=== PATIENT | female | born 1980 | race Caucasian/White ===

== ENCOUNTER 2022-03-12 15:10 | Outpatient (CLI) | payer MEDICAID, SELFPAY ==
[2022-03-12 18:08] LABS: Hepatitis B Surface Antigen* Negative (Negative)
[2022-03-12 18:19] LABS: HIV 1/2/P24 Combo Screen* Negative (Negative)
[2022-03-12 18:25] LABS: Hepatitis C Virus Antibody* Negative (Negative)
[2022-03-15 00:04] LABS: Rapid Plasma Reagin (RPR) Non Reactive (Non Reactive)
[2022-03-15 05:08] LABS: Rubella Antibody IgG 12.2 IU/mL; Varicella-Zoster Virus Ab, IgG 636.3 IV
== END 2022-03-12 15:11 | disposition home or self-care (01) ==
PROVIDERS: Visit Provider Advanced Practice Midwife
DX: Z34.81 Encounter for supervision of other normal pregnancy, first trimester (principal); Z3A.11 11 weeks gestation of pregnancy
CPT/HCPCS: 76801; 86592; 86703; 86762; 86787; 86803; 86850; 86900; 86901; 87086; 87340

== ENCOUNTER 2022-05-13 14:27 | Outpatient (CLI) | payer MEDICAID, SELFPAY | END 2022-05-13 14:28 | disposition home or self-care (01) | PROVIDERS: Visit Provider Pediatrics Neonatal-Perinatal Medicine | DX: O09.522 Supervision of elderly multigravida, second trimester (principal); Z87.51 Personal history of pre-term labor; Z3A.19 19 weeks gestation of pregnancy | CPT/HCPCS: 76811 ==

== ENCOUNTER 2022-06-08 01:24 | Outpatient (CLI) | payer MEDICAID, SELFPAY | END 2022-06-08 01:25 | disposition home or self-care (01) | LOC: AMB 06-09 09:14 | PROVIDERS: Visit Provider Family Medicine | DX: O26.92 Pregnancy related conditions, unspecified, second trimester (principal); R10.9 Unspecified abdominal pain; R11.2 Nausea with vomiting, unspecified; Z3A.24 24 weeks gestation of pregnancy | CPT/HCPCS: A0425; A0433 ==

== ENCOUNTER 2022-06-08 02:07 | Emergency (ER) | payer MEDICAID, SELFPAY ==
[2022-06-08] VITALS (15 sets, daily range): BP systolic 102–124; BP diastolic 66–88; PULSE 89–108; RESP 18–20; TEMP 36.9; O2SAT 96–100; BMI 34.7
--- OUTSIDE RECORDS SUMMARY | 2022-06-08 02:16 | XMS_ITS ---
:1980 Author Organization [facility] Address [address] [place] [address] Care Team Providers Name Role Phone SHAWNA BLAKELY Unavailable Unavailable PROBLEMS Unknown Problems ALLERGIES No Information ENCOUNTERS Encounter Location Date Diagnosis [facility] - [address] [facility] Mar, Pregnanc y affected by Pediatric Surgical [address], [place] [address] of fetus, single or unspecified fetu s O35.8XX0 [facility] - [address] DUC Mar, Pediatric Surgical [address] [place], [place] Associates [address] IMMUNIZATIONS No Known Immunizations SOCIAL HISTORY Never Assessed REASON FOR REFERRAL FUNCTIONAL STATUS PLAN OF CARE Activity Details Follow Up after delivery Reason: VITAL SIGNS MEDICATIONS Unknown Medications PROCEDURES No Known procedures RESULTS No Results REASON FOR VISIT N/P CONSULT, Appt 04/03- relay msg to DR Insurance Providers [facility] Member Patient Patient Patient Patient Patient Subscriber Subscriber Subscriber Group Insurance Plan Plan Plan Plan ID Relationship Address Phone Name Date of ID Name Date of No Type Insurance Insurance Insurance Coverage to Subscriber Address Phone Name Dates [employer] [address] [phone] [employer] self Peggi 1 [id number] [facility] [address] [place] [address]
--- NOTE | 2022-06-08 02:35 | ED_ITS ---
HPI - General Adult General Chief complaint: Nausea/Vomiting Stated complaint: with food poisioning Time Seen by Provider: 06/08/22 02:11 Source: patient and EMS Mode of arrival: EMS Limitations: no limitations History of Present Illness HPI narrative: 41-year-old female with no chronic medical problems, 24 weeks presents to the emergency department with a 4 hour history of nausea vomiting and d iarrhea. States that her symptoms started around 10:00 p.m.. Accompanied by abdominal cramping. She called an ambulance out of fear for dehydration. No fevers. No blood in her diarrhea, no blood in her vomit. There is no vaginal bleeding. movement has been normal. No loss of consciousness, dizziness, dyspnea. She has not tried taking any medication to help with her symptoms. She suspects that this may be related to contaminated potato salad but is unsure. No other family members are ill. No recent travel. No history of C diff. No recent antibiotic use. No rashes or other systemic symptoms noted. Past medical history benign besides . Denies abdominal surgeries. No long-term medications. Allergies are to penicillin causing a rash. Socially nonsmoker with no pertinent travel. ROS is negative times 12 systems. Obstetrical review of systems is negative for bleeding, vaginal discharge, fluid. Good movement is noted. Related Data Home Medications Medication Instructions Recorded Confirmed prenat.vits,jose juan,hss-eeqd-oanrj 1 tab PO QDAY 03/12/22 05/22/22 Previous Rx's Medication Instructions Recorded ondansetron 4 mg disintegrating 4 mg PO Q6H PRN nausea and 06/08/22 tablet vomiting #10 tabs Allergies Allergy/AdvReac Type Severity Reaction Status Date / Time Penicillins Allergy Mild Rash Verified 06/08/22 02:17 [facility] PFS Medical History Anomaly of kidney of fetus in [place] History of hyperemesis gravidarum Migraines Normal spontaneous vaginal delivery Surgical History History of radiofrequency ablation (RFA) of nerve of cervical spine Family History Maternal Grandfather Stroke Myocardial infarction Maternal Grandmother Stroke Diabetes Father High blood pressure Emphysema lung Social History Smoking Status: Never smoker Do you use any of these nicotine containing products: None Second hand tobacco smoke exposure: No How often do you have a drink containing alcohol: never AUDIT-C Alcohol total score: 0 Non-prescribed substance use: denies use Little interest or pleasure in doing things: not at all Feeling down, depressed, or hopeless: not at all Exam Const: Vital Signs, click to edit/add: Vital Signs - 24 hr 06/08/22 02:11 06/08/22 02:37 06/08/22 02:30 Temperature 98.4 F Pulse Rate 95 Pulse Rate [Right Pulse Oximeter] 95 Respiratory Rate 20 Blood Pressure 112/71 Blood Pressure [Ri ght Upper Arm] 114/76 Pulse Oximetry 98 98 99 Oxygen Delivery Me thod Room Air 06/08/22 02:32 06/08/22 02:33 06/08/22 03:00 Temperature Pulse Rate 97 95 89 Pulse Rate [Right Pulse Oximeter] Respiratory Rate Blood Pressure 111/80 Blood Pressure [Ri ght Upper Arm] Pulse Oximetry 99 99 99 Oxygen Delivery Me thod 06/08/22 03:02 06/08/22 03:07 Temperature Pulse Rate 106 H 102 H Pulse Rate [Right Pulse Oximeter] Respiratory Rate Blood Pressure 124/66 112/77 Blood Pressure [Ri ght Upper Arm] Pulse Oximetry 100 98 Oxygen Delivery Me thod Documenting provider has reviewed patient's vital signs: yes Other: Anxious but no clinical signs of dehydration. Well nourished and well hydrated appearing. HENMT: Common normals: normocephalic and head/scalp atraumatic Head and scalp: normocephalic and atraumatic Mouth: oral and palatal mucosa normal Throat: posterior oropharynx normal Eye: General eye: normal appearance of both eyes Other: Normal gaze and tracking. Neck & C-Spine: Common normals: full ROM and no lymphadenopathy Resp: Common normals: normal respiratory effort, no use of accessory muscles and clear to auscultation bilaterally Effort & inspection: able to speak in complete sentences Auscultation: clear to auscultation bilaterally Cardio: Common normals: regular rate, regular rhythm, S1 normal heart sound, S2 normal heart sound, no murmurs and peripheral pulses 2+ throughout Rate: regular rate Rhythm: regular rhythm Heart sounds: S1 normal and S2 normal Peripheral pulses: pulses 2+ throughout GI: Other: Abdomen gravid, fundal height consistent with reported dates. Auscultated heart tones in the mid 140s. Abdomen is otherwise benign, soft and nondistended. Bowel sounds are active in all 4 quadrants. Minimally diffusely tender but no localizing tenderness. Back & Pelvis: Lumbar spine/lower back: normal to inspection Extremity: Common normals: normal capillary refill and no pedal edema Neuro: Speech: speech normal Motor exam: strength 5/5 throughout, no tremor noted and no movement abnormalities noted Psych: Common normals: thought process normal and cooperative Mood and affect: anxious Thought process: normal thought process Insight: fair Judgement: fair Skin: Common normals: no rashes or lesions noted General skin exam: no rashes or lesions noted Course Vital Signs Vital signs: Initial Vital Signs Temperature 98.4 F 06/08/22 02:11 Temperature Source Temporal Artery Scan 06/08/22 02:11 Pulse Rate 95 06/08/22 02:11 Respiratory Rate 20 06/08/22 02:11 Blood Pressure 114/76 06/08/22 02:11 Blood Pressure Mean 88 06/08/22 02:11 Blood Pressure Position Sitting 06/08/22 02:11 Pulse Oximetry 98 06/08/22 02:11 Oxygen Delivery Method 06/08/22 02:11 Vital Signs Temperature 98.4 F 06/08/22 02:11 Pulse Rate 95 06/08/22 02:11 Respiratory Rate 20 06/08/22 02:11 Blood Pressure 114/76 06/08/22 02:11 Pulse Oximetry 98 06/08/22 02:11 Oxygen Delivery Method 06/08/22 02:11 Temperature 98.4 F 06/08/22 02:11 Pulse Rate 102 H 06/08/22 03:07 Respiratory Rate 20 06/08/22 02:11 Blood Pressure 112/77 06/08/22 03:07 Pulse Oximetry 98 06/08/22 03:07 Oxygen Delivery Method 06/08/22 02:11 Medical Decision Making MDM Narrative Medical decision making narrative: 4 hours of nausea vomiting and diarrhea, no clinical signs of dehydration, hypotension, tachycardia or other abnormality. Discussed risks and benefits of medications in . She verbalizes understanding and agreement. IV had infiltrated, unlikely that she received Zofran given by EMS. 4 mg of IV Zofran will be given x1, Protonix 40 mg IV x1, 1 L of LR, 4 mg of oral Imodium. Re- evaluated 1 hour. No clinical indication for labs and normally progressing . No fever signs of sepsis. Update: Patient feeling better after omeprazole and Zofran. Counseled on use of Tylenol, [id number]-tyv-kyzuggm Imodium, will send prescription for Zofran. Counseled on typical course of gastroenteritis. Alarm symptoms such as fever, bloody diarrhea reviewed as indications to update Ob provider or seek medical care. Brat diet, fluids discussed. Typical OB precautions reviewed. Update Ob provider if not improving in 36 hours. Discharge Plan Discharge Clinical Impression: Gastroenteritis Patient Disposition: Home w/ Parent or Adult Condition: Improved Instructions: Gastroenteritis (DC) Additional Instructions: There are no signs of fever, low blood pressure or elevated heart rate that would make us think there was a dangerous infection. Your given IV fluids, Zofran for nausea, stomach acid medicine. You may continue taking loperamide also known as Imodium. I recommend that now that you have already been given the initial dose, you take 2 mg after every bout of diarrhea, up to 6 tablets per day. It is okay to take Tylenol as needed for stomach discomfort. Consider taking omeprazole or famotidine both of which are bmnl-llg-kliuwjt stomach acid medicines. If you have bloody diarrhea, update your Ob provider as we would need to do additional testing as would we if you run a fever over 100.4. Follow the brat diet which consists of bananas, rice, applesauce, toast as your 1st initial foods. Sip slowly on fluids throughout the day. Update your Ob provider if you are not starting to improve in 36 hours. Activity Level: Activity as Tolerated Discharge Diet: Regular Prescriptions: New ondansetron 4 mg tablet,disintegrating 4 mg PO Q6H PRN (Reason: nausea and vomiting) Qty: 10 0RF No Action prenat.vits,jose juan,goe-bkcy-ufoco Tablet 1 tab PO QDAY Follow Up/Referrals: Provider,Not a Local [Primary Care Provider] - Stand Alone Forms: INTTRA Info Instructions
[2022-06-08] MEDS: LACTATED RINGERS 1000 ML 1,000 ML IV (02:42)
[2022-06-08] MEDS: PANTOPRAZOLE SODIUM 40 MG INJ IVP (02:43)
[2022-06-08] MEDS: ONDANSETRON 2 MG/ML inj 4 MG IVP (02:43)
[2022-06-08] MEDS: LOPERAMIDE HCL 2 MG CAPSULE 4 MG PO (02:43)
--- NOTE | 2022-06-08 03:07 | PC.NURSE ---
1X small amount brown liquid emesis, approx 20cc
--- OUTSIDE RECORDS SUMMARY | 2022-06-08 03:09 | XMS_ITS ---
:1980 Author Organization [facility] Address [address] [place] [address] Care Team Providers Name Role Phone SHAWNA BLAKELY Unavailable Unavailable PROBLEMS Unknown Problems ALLERGIES No Information ENCOUNTERS Encounter Location Date Diagnosis [facility] [address] [facility] Mar, Pregnanc y affected by Pediatric Surgical [address], [place] [address] of fetus, single or unspecified fetu s O35.8XX0 [facility] Office - [address] Mar, Pediatric Surgical [address] [place], [place] Associates [address] IMMUNIZATIONS No Known Immunizations SOCIAL HISTORY Never Assessed REASON FOR REFERRAL FUNCTIONAL STATUS PLAN OF CARE Activity Details Follow Up after delivery Reason: VITAL SIGNS MEDICATIONS Unknown Medications PROCEDURES No Known procedures RESULTS No Results REASON FOR VISIT N/P CONSULT, Appt 04/03- relay msg to DR Insurance Providers [facility] Member Patient Patient Patient Patient Patient Subscriber Subscriber Subscriber Group Insurance Plan Plan Plan Plan ID Relationship Address Phone Name Date of ID Name Date of No Type Insurance Insurance Insurance Coverage to Subscriber Address Phone Name Dates [employer] [address] [phone] [employer] PM[employer] self Peggi 1 [id number] [facility] [address] [place] [address]
[2022-06-08] MEDS: LOPERAMIDE HCL 2 MG CAPSULE PO (03:32)
== END 2022-06-08 04:23 | disposition home or self-care (01) ==
PROVIDERS: Emergency Provider Family Medicine
DX: K52.9 Noninfective gastroenteritis and colitis, unspecified (principal); Z3A.24 24 weeks gestation of pregnancy
CPT/HCPCS: 94761; 96374; 96375; 99283; A9270; C9113; J2405; J7120

== ENCOUNTER 2022-07-16 12:28 | Outpatient (CLI) | payer MEDICAID, SELFPAY ==
--- OUTSIDE RECORDS SUMMARY | 2022-07-19 07:59 | XMS_ITS ---
Author Name SHAWNA BLAKELY Address [address] [place] [address] Organization [facility] Address [address] [place] [address] Care Team Providers Care Food Trades Assistants Name Role Phone SHAWNA BLAKELY Unavailable [phone] PROBLEMS Unknown Problems ALLERGIES No Information ENCOUNTERS Encounter Location Date Diagnosis [facility] [address] [facility] [address] [place] [address] Mar, affected by genitourinary abnormality of fetus, single or unspecified fetus O35.8XX0 [facility] - [facility] Surgical [facility] [address] [place] [address] Mar, IMMUNIZATIONS No Known Immunizations SOCIAL HISTORY Never Assessed REASON FOR REFERRAL FUNCTIONAL STATUS PLAN OF CARE Activity Details VITAL SIGNS MEDICATIONS Unknown Medications PROCEDURES No Known procedures RESULTS No Results REASON FOR VISIT N/P CONSULT, Appt 04/03- relay msg to DRNirmala Insurance Providers Health Insurance Type Health Plan Insurance Address Health Plan Insurance Phone Health Plan Insurance Name Health Plan Coverage Dates Member ID Patient Relationship to Subscriber Patient Address Patient Phone Patient Name Patient Date of Subscriber ID Subscriber Name Subscriber Date of Group No [employer] [place] [address] [place] [address] [employer] self Brandee Feliz [id number] [employer]
== END 2022-07-16 12:29 | disposition home or self-care (01) ==
LOC: NFLDREF 07-19 07:57
PROVIDERS: Visit Provider Advanced Practice Midwife
DX: O09.523 Supervision of elderly multigravida, third trimester (principal); O35.EXX0 Maternal care for other (suspected) fetal abnormality and damage, fetal genitourinary anomalies, not applicable or unspecified; Z3A.29 29 weeks gestation of pregnancy
CPT/HCPCS: 86592

== ENCOUNTER 2022-08-06 12:54 | Outpatient (CLI) | payer MEDICAID, SELFPAY ==
--- OUTSIDE RECORDS SUMMARY | 2022-08-06 12:56 | XMS_ITS ---
Author Name SHAWNA BLAKELY Address [address] [place] [address] Organization [facility] Address [address] [place] [address] Care Team Providers Care Occupational Nurse Name Role Phone SHAWNA BLAKELY Unavailable [phone] PROBLEMS Unknown Problems ALLERGIES No Information ENCOUNTERS Encounter Location Date Diagnosis [facility] [address] [facility] [address] [place] [address] Mar, affected by genitourinary abnormality of fetus, single or unspecified fetus O35.8XX0 [facility] [address] [place] [address] Mar, IMMUNIZATIONS No Known Immunizations SOCIAL HISTORY [...] [place] [address] [place] [address] [employer] self Brandee Feliz [id number] MEMTMA
--- NOTE | 2022-08-06 13:00 | CRLHL7_ITS ---
For Patients: As a result of the Century Cures Act, medical imaging exams and procedure reports are released immediately into your electronic medical record. You may view this report before your referring provider. If you have questions, please contact your health care provider. INDICATION: BPP/growth, f/u left renal pelvis dilation TECHNIQUE: Real time morley scale imaging of the fetus was performed. COMPARISON: 05/13/2022 FINDINGS: Sonographic imaging demonstrates a single living intrauterine gestation. Fetus demonstrates a regular cardiac rate of 133 beats per minute. Fetus has a vertex position. The placenta lies fundal posterior. Amniotic fluid volume appears normal and there is a single deepest pocket of 5.7 cm. The estimated weight is gm which lies at the %. On the prior OB ultrasound dated 05/13/2022 the estimated weight was at the 48th percentile. BPD 19th percentile. HC 62nd percentile. AC 91st percentile. FL 6th percentile. The fetus was active. Respiratory motion visualized, however, did not last for 30 seconds. There was normal flexion and extension of the trunk and extremities. IMPRESSION: Biophysical profile 10/01. Left renal pelvis measures 1.3 cm. Previously, this measured 5.7 millimeters. Sonographic gestational age 32 weeks 2 days and sonographic due date 09/29/2022. Good correlation with dates. Normal interval growth. Estimated weight 57th percentile. Abdominal circumference 91st percentile. Dictated by Daron Rojas MD @ 08/07/2022 11:51:48 AM (Electronically Signed)
== END 2022-08-06 12:55 | disposition home or self-care (01) ==
LOC: US 12:54
PROVIDERS: Visit Provider Advanced Practice Midwife
DX: O35.EXX0 Maternal care for other (suspected) fetal abnormality and damage, fetal genitourinary anomalies, not applicable or unspecified (principal); Z3A.32 32 weeks gestation of pregnancy
CPT/HCPCS: 76816; 76819

== ENCOUNTER 2022-08-27 14:17 | Outpatient (CLI) | payer MEDICAID, SELFPAY ==
--- OUTSIDE RECORDS SUMMARY | 2022-08-27 14:18 | XMS_ITS ---
Author Name SHAWNA BLAKELY Address [address] [place] [address] Organization [facility] Address [address] [place] [address] Care Team Providers Care Baker Apprentice Name Role Phone SHAWNA BLAKELY Unavailable [phone] PROBLEMS Unknown Problems ALLERGIES No Information ENCOUNTERS Encounter Location Date Diagnosis [facility] [address] [place] [address] Mar, affected by genitourinary abnormality of fetus, single or unspecified fetus O35.8XX0 [facility] [address] [place] [address] Mar, IMMUNIZATIONS No Known Immunizations SOCIAL HISTORY Never Assessed REASON FOR REFERRAL FUNCTIONAL STATUS PLAN OF CARE Activity Details Follow Up after delivery Reaso n: VITAL SIGNS MEDICATIONS Unknown Medications PROCEDURES No [...] [place] [address] [place] [address] [employer] PM[employer] self Brandee Feliz [id number] [facility]
[2022-08-27 14:29] VITALS: BP 95/57; PULSE 103; RESP 16; TEMP 36.9
--- NOTE | 2022-08-27 15:10 | PC.OBNST ---
NST Note NST Note Start: 08/27/22 14:14 Freq: ONCE Status: Active Protocol: Document 08/27/22 15:08 LASHAWN (Rec: 08/27/22 15:10 AAP [id number]) NST Note 7 Para (# of births) 3 EDC 10/01/22 Gestational Age In Weeks & Days 35 Weeks & 0 Days High Risk Factors Advanced Maternal Age Patient Presented with Complaint(s) of Other Other Complaints Here for NST Reactive Yes Appropriate for Gestational Age Yes RN Charity Carias RN Date 08/27/22 Reactive Yes Appropriate for Gestational Age Yes RAINA Fagan CNM Date 08/27/22 OB NST charge Yes Complete NST Note via Write Note Yes The provider's electronic signature indicates the NST is reactive/appropriate for gestational age. *Note to provider: If an addendum is required, open the patient's chart and click on the note under the Nurse/Allied Health tab.
== END 2022-08-27 15:23 | disposition home or self-care (01) ==
LOC: OB OUT 14:17 → OB 14:17
PROVIDERS: Visit Provider Advanced Practice Midwife
DX: O09.523 Supervision of elderly multigravida, third trimester (principal); Z3A.35 35 weeks gestation of pregnancy
CPT/HCPCS: 59025; 99213

== ENCOUNTER 2022-12-02 12:09 | Outpatient (CLI) | payer MEDICAID, SELFPAY ==
--- OUTSIDE RECORDS SUMMARY | 2022-12-03 12:24 | XMS_ITS ---
Author Name SHAWNA BLAKELY Address [address] [place] [address] Organization [facility] Address [address] [place] [address] Care Team Providers Care Clerk Secretary Name Role Phone SHAWNA BLAKELY Unavailable [phone] PROBLEMS Unknown Problems ALLERGIES No Information ENCOUNTERS Encounter Location Date Diagnosis [facility] [address] [facility] [address] [place] [address] Mar, affected by genitourinary abnormality of fetus, single or unspecified fetus O35.8XX0 [facility] [address] [place] [address] Mar, IMMUNIZATIONS No Known Immunizations SOCIAL HISTORY [...] [place] [address] [place] [address] [employer] PM[employer] self Brandee Feliz [id number] [facility]
== END 2022-12-02 12:10 | disposition home or self-care (01) ==
LOC: NFLDREF 12-03 12:23
PROVIDERS: Visit Provider Family Medicine
DX: E66.9 Obesity, unspecified (principal); F90.0 Attention-deficit hyperactivity disorder, predominantly inattentive type; Z86.32 Personal history of gestational diabetes; Z79.899 Other long term (current) drug therapy; Z76.89 Persons encountering health services in other specified circumstances; Z39.1 Encounter for care and examination of lactating mother
CPT/HCPCS: 80053; 80061; 82306; 84443

== ENCOUNTER 2023-07-08 08:32 | Outpatient (CLI) | payer MEDICAID, SELFPAY ==
--- NOTE | 2023-07-08 08:45 | MM_ITS ---
Patient: TYLER BARAJAS Facility:?[facility] Patient ID:?[id number] Site Patient ID:?[id number] Site :?1980 Study:?XRay-Breast Bilateral 3D W/CAD-07/08/2023 9:33:42 AM Ordering Physician:Silver Final Report: DIGITAL DIAGNOSTIC BILATERAL MAMMOGRAM USING TOMOSYNTHESIS AND COMPUTER-AIDED DETECTION LEFT BREAST ULTRASOUND CLINICAL HISTORY: LEFT breast density at 12 o`clock on outside screening ultrasound exam. COMPARISON: None available. TECHNIQUE: Digital BILATERAL mammogram in four projections. Tomosynthesis and CAD utilized. Real-time ultrasound imaging of LEFT breast with imaging documentation. BREAST COMPOSITION: There are areas of scattered fibroglandular density. FINDINGS: 3D CC/MLO BILATERAL mammogram images submitted. Normal fibroglandular tissue is present bilaterally without suspicious mass or architectural distortion. No suspicious calcifications. No adenopathy. Targeted LEFT breast ultrasound performed at 12 o`clock 7 cm from the nipple. Normal fibroglandular tissues are present. No fibrocystic change or mass. IMPRESSION: No evidence of malignancy. No suspicious findings. RECOMMENDATIONS: Annual BILATERAL screening mammography. Results and recommendations discussed with the patient. BI-RADS Category 2: Benign A lay language report of this examination will be provided to the patient. Dictated by Daron Rojas MD @ 07/08/2023 9:39:35 AM jj/Dictated by: Daron Rojas MD @ 07/08/2023 9:39:00 AM Signed by:?Daron Rojas MD @07/08/2023 10:23:07 AM (Electronic Signature)
--- NOTE | 2023-07-08 09:15 | US_ITS ---
Patient: TYLER BARAJAS Facility:?[facility] Patient ID:?[id number] Site Patient ID:?[id number] Site :?1980 Study:?US-Breast Left DR VIDAL TO READ-07/08/2023 9:24:07 AM Ordering Physician:?BECKY GREEN Final Report: See digital BILATERAL diagnostic mammogram performed the same day for report. DW/Dictated by: Daron Vidal MD @ 07/08/2023 9:39:00 AM Signed by:?Daron Vidal MD @07/08/2023 10:23:05 AM (Electronic Signature)
== END 2023-07-08 08:33 | disposition home or self-care (01) ==
LOC: MAMMO 08:32
PROVIDERS: PCP Family Medicine; Visit Provider Family Medicine
DX: N63.20 Unspecified lump in the left breast, unspecified quadrant (principal); R92.8 Other abnormal and inconclusive findings on diagnostic imaging of breast
CPT/HCPCS: 76642; 77066; G0279

== ENCOUNTER 2024-03-17 13:37 | Outpatient (CLI) | payer MEDICAID, SELFPAY ==
--- OUTSIDE RECORDS SUMMARY | 2024-03-20 14:13 | XMS_ITS | Clinical Summary ---
Author Organization [facility] Address [place], [place] [address] Care Team Providers Care Machine Chocolate Molder Name Role Phone Nonstaff, Doctor Primary Care Provider Unavailab le Allergies Active Allergy Reactions Criticality Noted Date Comments Penicillins Rash 10/30/2015 Medications Medication Sig Dispensed Refills Start Date End Date Status VIT #91/FE FUM/FA/DHA ( + DHA ORAL) Take 1 Tab by mouth once daily. Active aspirin chewable 81 mg chewable tablet Daily Active Active Problems Problem Noted Date Diagnosed Date [facility] Supervision of high-risk 1 Overview (03/27/2021): [facility] TESTING ONLY NEXT VISIT ALERTS: PLANS & FUTURE APPOINTMENTS: TESTING PLAN: Weekly - has testing in [place] - Testing: Through 03/27 GROWTH PLAN: - Growth: Next 03/27/21 DELIVERY PLAN: - Scheduled delivery: - Preferred delivery location: [place] PRIMARY DIAGNOSIS: 40 y.o. Estimated Date of Delivery: 04/28/21 : Bilateral hydronephrosis with enlarged bladder Maternal: AMA Hx son with penoscrotal fusion SAB x 3 2000 PTD 36wks (septic, hyperemesis) 2016 Term LAST GROWTH: 03/27/21 35w3d 02/27/21 31w3d EFW 2255 grams, percentile: 95. 01/28/21 27w1d EFW 1283 grams, percentile: 92. 12/27/20 22w4d EFW 701 grams, percentile: > 97. ECHO: REFERRING PHYSICIAN/PHONE/LAST UPDATE: Elaine Toussaint MD - [place] Primary MD approves scheduling of recommended ultrasounds/testing: Not specified SPECIALISTS/CONSULTS: Include: Specialty MD Clinic Name Phone# [facility] [place] and ADDED TO PATIENT CARE TEAM Yes GENETICS: NIPT Low risk CARE COORDINATION: Needs H&P 30 days prior to delivery if MPP doing delivery PERTINENT LABS: O positive/Antibody negative PERTINENT MEDS: PLAN OF CARE: 02/27/21 per [facility] -Return to primary provider for continued care. -No medication changes are indicated. -Weekly BPPs / NSTs suggested. -A follow up ultrasound for growth is recommended 4 weeks. Follow up appointments for Ultrasound only were scheduled in our office today. -A Pediatric Urology consultation will be arranged via the [facility] Advanced maternal age in multigravida, second tr imester 12/27/2020 hydronephrosis in preg lio, antepartum, single gestation 12/27/2020 contractions Social History Tobacco Use Types Packs/Day Years Used Date Smoking Tobacco: Never Smokeless Tobacco: Never Alcohol Use Standard Drinks/Week Comments Never 0 (1 standard drink = 0.6 oz pur e alcohol) Sex and Gender Information Value Date Recorded Sex Assigned at Not on file Gender Identity Not on file Sexual Orientation Not on file Obstetrics History Para Term AB IAB SAB Ectopic Multiple Livin g Live Births 6 2 1 1 3 3 2 2 Date Outcome GA Total Labor Labor//3rd Weight Sex Type Anes PTL Rivka A1 A5 Name Clin 2000 SAB SPONTA NEOUS 2000 SAB SPONTA NEOUS 001 36w 0d M VAGINA L VELMA Livin g Comments:hyperemesis; septic 2013 SAB SPONTA NEOUS 016 Term 40w 0d M Vag Livin g Last Filed Vital Signs Vital Sign Reading Time Taken Comments Blood Pressure 112/69 03/27/2021 9:41 AM DOUGH CUTTING MACHINE OPERATOR Pulse 114 03/27/2021 9:41 AM DOUGH CUTTING MACHINE OPERATOR Temperature - - Respiratory Rate 18 11/01/2015 3:45 PM CDT Oxygen Saturation - - Inhaled Oxygen Concentration - - Weight 81.6 kg (180 lb) 10/30/2015 8:23 PM CDT Height 167.6 cm (5' 6) 10/30/2015 8:23 PM CDT Body Mass Index 29.05 10/30/2015 8:23 PM CDT Plan of Treatment Health Maintenance Due Date Last Done Comments Tdap 07/12/1991 Depression screening for age 12+ 1992 HIV for age 15-65 07/12/1995 BMI (ht and wt on same day) for age 18+ 1998 Hepatitis C screening for ag e 18-79 1998 Tetanus booster 2000 Pap test for age 21-65 2001 COVID-19 vaccine series (2023- season) 2023 Influenza for age 9-49 12/26/2023 Pneumococcal series for age 6-64 Aged Out No longer eligible based on patient's age to complete this topic Advance Directives * Full Code (Latest Code Status on File) Date Activated Date Inactivated Comments 10/30/2015 8:08 PM 10/31/2015 12:43 AM Care Teams Machine Chocolate Molder Relationship Specialty Start Date End Date Nonstaff, Doctor NON STAFF DOCTOR PCP - General 10/30/15
== END 2024-03-17 13:38 | disposition home or self-care (01) ==
LOC: NFLDREF 03-20 14:01
PROVIDERS: PCP Family Medicine; Referring Provider Family Medicine; Visit Provider Family Medicine
DX: Z77.011 Contact with and (suspected) exposure to lead (principal); Z77.29 Contact with and (suspected) exposure to other hazardous substances; Z13.88 Encounter for screening for disorder due to exposure to contaminants
CPT/HCPCS: 82300; 83655

== ENCOUNTER 2024-05-08 07:48 | Outpatient (CLI) | payer MEDICAID, SELFPAY | END 2024-05-08 07:49 | disposition home or self-care (01) | LOC: NFLDREF 05-15 23:06 | PROVIDERS: PCP Family Medicine; Referring Provider Family Medicine; Visit Provider Family Medicine | DX: Z11.1 Encounter for screening for respiratory tuberculosis (principal) | CPT/HCPCS: 86480 ==